=== PATIENT | male | born 1945 | race Caucasian/White ===

== ENCOUNTER 2019-10-26 23:49 | Inpatient (IN) ==
[2019-10-27] MEDS ORDERED: Aspirin 81 MG TAB.CHEW PO ONE (00:02)
[2019-10-27 00:31] LABS: Basophils # 0.1 K/mcL (0.0-0.2); Basophils % 0.7 %; Eosinophils # 0.3 K/mcL (0.0-0.6); Eosinophils % 2.8 %; Hematocrit 28.5 % (37.5-50.1); Hemoglobin 9.3 g/dL (12.9-16.9); Immature Granulocytes % 2.1 % (0-4); Lymphocytes # 2.5 K/mcL (0.6-4.6); Lymphocytes % 24.7 %; Mean Corpuscular HGB Conc 32.6 g/dL (31.6-35.5); Mean Corpuscular Hemoglobin 34.3 pg (28.0-33.3); Mean Corpuscular Volume 105.2 fL (83.0-100.0); Mean Platelet Volume 10.3 fL (9.4-12.4); Monocytes # 0.9 K/mcL (0.0-1.3); Neutrophils # 6.1 K/mcL (1.6-8.9); Platelet Count 205 K/mcL (140-400); Red Blood Count 2.71 M/mcL (4.19-5.50); Red Cell Distribution Width 13.5 % (11.5-14.5); Segmented Neutrophils % 60.7 %
[2019-10-27 00:50] LABS: BUN/Creatinine Ratio 27 (6-26); Blood Urea Nitrogen 32 mg/dL (8-23); Calcium 9.4 mg/dL (8.6-10.3); Carbon Dioxide 29 mEq/L (23-29); Chloride 103 mEq/L (98-107); Glucose 148 mg/dL (70-105); Osmolality,Calculated 298 (280-300); Potassium 4.3 mEq/L (3.5-5.1); Sodium 139 mEq/L (136-145); Troponin I < 0.03 ng/mL (< 0.04); eGFR For African Americans > 60 (> 60); eGFR For Non-African Americans > 60 (> 60)
[2019-10-27] MEDS ORDERED: Naloxone 0.4 MG/ML INJ IVP PRN (04:43)
[2019-10-27] MEDS ORDERED: Nitroglycerin 0.4 MG TAB.SUBL SL PRN (04:43)
[2019-10-27 05:37] LABS: Bilirubin,Urine Negative (Negative); Blood,Urine Negative (Negative); Clarity,Urine Clear (Clear); Color,Urine Yellow (Yellow); Glucose,Urine (UA) Normal (Normal); Ketones,Urine Negative (Negative); Leukocyte Esterase,Urine Negative (Negative); Nitrite,Urine Negative (Negative); PH,Urine 5.5 pH Units (5.0-8.0); Protein,Urine Trace mg/dL (Neg-Trace); Specific Gravity,Urine 1.019 (1.010-1.025); Urobilinogen,Urine Normal (Normal)
[2019-10-27 05:57] LABS: Amphetamine Screen,Urine Negative ng/mL (Cutoff=1000); Barbiturate Screen,Urine Negative ng/mL (Cutoff=200)
[2019-10-27 05:58] LABS: Benzodiazepines Screen,Urine Negative ng/mL (Cutoff=300); Cannabinoid Screen,Urine Negative ng/mL (Cutoff = 50); Cocaine Screen,Urine Negative ng/mL (Cutoff= 300); Opiate Screen,Urine Negative ng/mL (Cutoff=300); Phencyclidine Screen,Urine Negative ng/mL (Cutoff=25)
[2019-10-27] MEDS ORDERED: *HR* Heparin 5,000 UNIT/ML VIAL SQ SCH (06:00)
[2019-10-27] MEDS ORDERED: Regadenoson 0.4 MG/5 ML SYRINGE IVP ONE (06:14)
[2019-10-27 06:22] LABS: Basophils # 0.1 K/mcL (0.0-0.2); Basophils % 0.6 %; Eosinophils # 0.3 K/mcL (0.0-0.6); Eosinophils % 2.7 %; Hematocrit 27.6 % (37.5-50.1); Hemoglobin 9.1 g/dL (12.9-16.9); Immature Granulocytes % 1.5 % (0-4); Lymphocytes # 2.8 K/mcL (0.6-4.6); Mean Corpuscular Hemoglobin 34.6 pg (28.0-33.3); Mean Corpuscular Volume 104.9 fL (83.0-100.0); Mean Platelet Volume 10.2 fL (9.4-12.4); Monocytes # 0.9 K/mcL (0.0-1.3); Monocytes % 8.3 %; Neutrophils # 6.3 K/mcL (1.6-8.9); Nucleated Red Blood Cells 0.2 /100 WBC (0); Platelet Count 203 K/mcL (140-400); Red Blood Count 2.63 M/mcL (4.19-5.50); Red Cell Distribution Width 13.3 % (11.5-14.5); Segmented Neutrophils % 59.9 %; White Blood Count 10.5 K/mcL (4.3-11.1)
[2019-10-27 06:47] LABS: Alanine Aminotransferase 24 Units/L (7-52); Albumin 3.8 g/dL (3.5-5.7); Albumin/Globulin Ratio 1.5 (1.1-2.2); Alkaline Phosphatase 50 Units/L (34-104); Aspartate Amino Transferase 21 Units/L (13-39); BUN/Creatinine Ratio 28 (6-26); Bilirubin,Total 0.3 mg/dL (0.3-1.0); Blood Urea Nitrogen 29 mg/dL (8-23); Calcium 9.2 mg/dL (8.6-10.3); Carbon Dioxide 28 mEq/L (23-29); Chloride 103 mEq/L (98-107); Chol/HDL Ratio 4.1 (0-4.9); Cholesterol 119 mg/dL (< 200); Globulin 2.5 g/dL (2.4-3.5); Glucose 82 mg/dL (70-105); HDL Cholesterol 29 mg/dL (40-59); LDL Cholesterol,Calculated 32 mg/dL (0-99); Magnesium 1.8 mg/dL (1.6-2.6); Osmolality,Calculated 297 (280-300); Phosphorous 3.8 mg/dL (2.7-4.5); Potassium 4.1 mEq/L (3.5-5.1); Sodium 141 mEq/L (136-145); Total Protein 6.3 g/dL (6.4-8.9); Triglycerides 288 mg/dL (< 150); eGFR For African Americans > 60 (> 60); eGFR For Non-African Americans > 60 (> 60)
[2019-10-27 07:09] LABS: Folate 8.2 ng/mL (3.0-16.0)
[2019-10-27] MEDS ORDERED: *HR* Heparin 5,000 UNIT/ML VIAL IVP PRN ×2 (07:12)
[2019-10-27] MEDS ORDERED: Heparin 25,000 UNIT/250 ML D5W 25,000 UNIT/250 ML IV.SOLN IVC SCH (07:15)
[2019-10-27] MEDS: carvediloL 6.25 MG TABLET PO SCH ×2 (08:46→17:57)
[2019-10-27 08:51] LABS: Estimated Average Glucose 123 mg/dl
[2019-10-27] MEDS ORDERED: Cyanocobalamin (B-12) 1,000 MCG TABLET PO SCH (13:45)
[2019-10-27] MEDS ORDERED: *HR* Heparin 10,000 UNIT/10 ML VIAL ONE (14:01)
[2019-10-27] MEDS ORDERED: ISOVUE-370 200 ML INFUS..BTL ONE (14:01)
[2019-10-27] MEDS ORDERED: Heparin 1,000 UNITS/500 mL 500 ML ONE (14:01)
[2019-10-27] MEDS ORDERED: 0.9 % Sodium Chloride 1,000 ML ONE (14:01)
[2019-10-27] MEDS ORDERED: Nitroglycerin 1,000 MCG/10 ML VIAL IV ONE (14:01)
[2019-10-27] MEDS ORDERED: *HR* FentaNYL (PF) 100 MCG/2 ML VIAL ONE (14:09)
[2019-10-27] MEDS ORDERED: *HR* Midazolam HCl 2 MG/2 ML VIAL ONE (14:09)
[2019-10-27 14:18] LABS: % Iron Saturation 13 % (20-55); Iron 42 mcg/dL (65-175); Transferrin 223 mg/dL (203-362)
[2019-10-27] MEDS ORDERED: Perflutren Lipid Microsphere 1.3 ML in 0.9 % Sodium Chloride 8.7 ML IVP ONE (18:29)
[2019-10-27] MEDS: Cyanocobalamin (B-12) 1,000 MCG/ML VIAL SQ SCH (18:32)
[2019-10-27] MEDS: Heparin 25,000 UNIT/250 ML D5W 25,000 UNIT/250 ML IV.SOLN IVC SCH (18:43)
[2019-10-28 01:32] LABS: Basophils % 0.4 %; Eosinophils # 0.3 K/mcL (0.0-0.6); Eosinophils % 2.6 %; Hematocrit 27.4 % (37.5-50.1); Hemoglobin 9.1 g/dL (12.9-16.9); Immature Granulocytes % 2.1 % (0-4); Lymphocytes # 2.4 K/mcL (0.6-4.6); Lymphocytes % 22.3 %; Mean Corpuscular HGB Conc 33.2 g/dL (31.6-35.5); Mean Corpuscular Volume 102.2 fL (83.0-100.0); Mean Platelet Volume 10.5 fL (9.4-12.4); Neutrophils # 6.8 K/mcL (1.6-8.9); Platelet Count 235 K/mcL (140-400); Red Blood Count 2.68 M/mcL (4.19-5.50); Red Cell Distribution Width 13.6 % (11.5-14.5); Segmented Neutrophils % 63.6 %; White Blood Count 10.7 K/mcL (4.3-11.1)
[2019-10-28] MEDS ORDERED: *HR* Labetalol 20 MG/4 ML SYRINGE IVP ONE (01:39)
[2019-10-28 01:49] LABS: BUN/Creatinine Ratio 20 (6-26); Blood Urea Nitrogen 20 mg/dL (8-23); Calcium 9.1 mg/dL (8.6-10.3); Carbon Dioxide 27 mEq/L (23-29); Chloride 104 mEq/L (98-107); Glucose 91 mg/dL (70-105); Osmolality,Calculated 290 (280-300); Sodium 139 mEq/L (136-145); eGFR For African Americans > 60 (> 60); eGFR For Non-African Americans > 60 (> 60)
[2019-10-28] MEDS: carvediloL 6.25 MG TABLET PO SCH ×2 (07:39→17:18)
[2019-10-28] MEDS: Cyanocobalamin (B-12) 1,000 MCG/ML VIAL SQ SCH (07:40)
[2019-10-28] MEDS ORDERED: *HR* LORazepam 2 MG/ML VIAL IVP PRN (09:28)
[2019-10-28] MEDS ORDERED: Albuterol 2.5 MG/3 ML NEBULIZER IH PRN (09:41)
[2019-10-28 10:22] LABS: Hematocrit 30.3 % (37.5-50.1); Hemoglobin 10.1 g/dL (12.9-16.9)
[2019-10-28] MEDS: Ipratropium/Albuterol Neb 3 ML IH SCH ×4 (11:09→23:27)
[2019-10-28] MEDS: Lisinopril-HCTZ 20-12.5mg TABLET PO SCH (12:09)
[2019-10-28] MEDS ORDERED: Furosemide 20 MG TABLET PO PRN (13:52)
[2019-10-28] MEDS: Heparin 25,000 UNIT/250 ML D5W 25,000 UNIT/250 ML IV.SOLN IVC SCH (14:55)
[2019-10-28] MEDS: Thiamine (B-1) 100 MG, Folic Acid 1 MG, MVI, adult with vitamin K 10 ML in 0.9 % Sodi... IVPB SCH (17:26)
[2019-10-28 18:02] LABS: Hematocrit 28.7 % (37.5-50.1); Hemoglobin 9.5 g/dL (12.9-16.9)
[2019-10-28 18:17] LABS: % Iron Saturation 11 % (20-55); Iron 34 mcg/dL (65-175); Transferrin 228 mg/dL (203-362)
[2019-10-28 18:45] LABS: Folate 8.5 ng/mL (3.0-16.0)
[2019-10-28 18:48] LABS: Vitamin B12 > 1500 pg/mL (250-1100)
[2019-10-28] MEDS: Chlorhexidine Rinse 15 ML MOUTHWASH MM SCH (20:40)
[2019-10-29 00:37] LABS: Hematocrit 28.3 % (37.5-50.1); Hemoglobin 9.7 g/dL (12.9-16.9)
[2019-10-29] MEDS: Ipratropium/Albuterol Neb 3 ML IH SCH ×6 (03:42→23:47)
[2019-10-29] MEDS: carvediloL 6.25 MG TABLET PO SCH (05:45)
[2019-10-29] MEDS: Chlorhexidine Rinse 15 ML MOUTHWASH MM SCH ×2 (05:48→19:59)
[2019-10-29] MEDS ORDERED: CeFAZolin Syr 3,000MG/30 ML 3,000 MG/30 ML SYRINGE IVPB ONE (06:00)
[2019-10-29] MEDS ORDERED: Insulin Human Regular 100 UNIT in 0.9 % Sodium Chloride 100 ML IV PRN (06:00)
[2019-10-29] MEDS ORDERED: Heparin 15,000 UNIT in 0.9 % Sodium Chloride 500 ML IV ONE (06:00)
[2019-10-29] MEDS ORDERED: Norepinephrine 4 MG in 0.9 % Sodium Chloride 250 ML IVC PRN (06:00)
[2019-10-29] MEDS ORDERED: Dextrose 50 % in Water (Vial) 30 ML, Sodium Bicarbonate 20 MEQ, Lidocaine 1% 5 ML, Insu... TH ONE ×2 (06:00→08:00)
[2019-10-29] MEDS ORDERED: Dextrose 50 % in Water (Vial) 30 ML, Sodium Bicarbonate 20 MEQ, Potassium Chloride 15 M... TH ONE (06:00)
[2019-10-29] MEDS ORDERED: Aspirin 81 MG TAB.CHEW PO ONE (06:00)
[2019-10-29 06:38] LABS: Basophils % 0.3 %; Eosinophils # 0.2 K/mcL (0.0-0.6); Hemoglobin 8.8 g/dL (12.9-16.9); Immature Granulocytes % 1.9 % (0-4); Lymphocytes # 2.5 K/mcL (0.6-4.6); Lymphocytes % 21.3 %; Mean Corpuscular HGB Conc 32.6 g/dL (31.6-35.5); Mean Corpuscular Hemoglobin 34.1 pg (28.0-33.3); Mean Corpuscular Volume 104.7 fL (83.0-100.0); Mean Platelet Volume 9.8 fL (9.4-12.4); Monocytes # 1.4 K/mcL (0.0-1.3); Monocytes % 11.6 %; Neutrophils # 7.4 K/mcL (1.6-8.9); Nucleated Red Blood Cells 0.3 /100 WBC (0); Platelet Count 231 K/mcL (140-400); Red Blood Count 2.58 M/mcL (4.19-5.50); Red Cell Distribution Width 13.8 % (11.5-14.5); Segmented Neutrophils % 62.9 %; White Blood Count 11.8 K/mcL (4.3-11.1)
[2019-10-29] MEDS ORDERED: *HR* Midazolam HCl 5 MG/5 ML VIAL IVP ONE (06:53)
[2019-10-29] MEDS ORDERED: *HR* Propofol 200 MG/20 ML VIAL IVP ONE (06:54)
[2019-10-29] MEDS ORDERED: *HR* FentaNYL (PF) 1,000 MCG/20 ML VIAL ONE (06:54)
[2019-10-29 06:57] LABS: BUN/Creatinine Ratio 20 (6-26); Blood Urea Nitrogen 20 mg/dL (8-23); Calcium 9.2 mg/dL (8.6-10.3); Carbon Dioxide 32 mEq/L (23-29); Chloride 101 mEq/L (98-107); Glucose 115 mg/dL (70-105); Osmolality,Calculated 294 (280-300); Potassium 3.9 mEq/L (3.5-5.1); Sodium 140 mEq/L (136-145); eGFR For African Americans > 60 (> 60); eGFR For Non-African Americans > 60 (> 60)
[2019-10-29] MEDS ORDERED: Famotidine 20 MG/2 ML VIAL ONE (06:59)
[2019-10-29] MEDS ORDERED: *HR* Magnesium Sulfate 1 GM/2 ML VIAL ONE (06:59)
[2019-10-29] MEDS ORDERED: Dexamethasone 4 MG/ML VIAL ONE (06:59)
[2019-10-29] MEDS ORDERED: Tranexamic Acid 1,000 MG/10 ML VIAL ONE (07:01)
[2019-10-29] MEDS ORDERED: *HR* PHENYLEPHRINE 1,000 MCG/10 ML SYRINGE IVP ONE (07:03)
[2019-10-29] MEDS ORDERED: Lidocaine 2% Syringe 100 MG/5 ML ONE (07:06)
[2019-10-29] MEDS ORDERED: *HR* Rocuronium Bromide 50 MG/5 ML VIAL ONE ×3 (07:07→11:17)
[2019-10-29 08:14] LABS: ABG Base Excess 6 mEq/L (-2 to 3); ABG Chloride 100 mEq/L (98-107); ABG Glucose 105 mg/dL (60-95); ABG HCO3 33 mEq/L (21-27); ABG Ionized Calcium 1.23 mmol/L (1.15-1.35); ABG Oxygen Saturation 100 % (95-98); ABG PCO2 60 mmHg (35-45); ABG PH 7.35 pH Units (7.32-7.45); ABG PO2 320 mmHg (85-104); ABG TCO2 35 mEq/L (20-26)
[2019-10-29] MEDS ORDERED: Mannitol 25% vial 12.5 GM/50 ML VIAL IVP ONE (09:10)
[2019-10-29] MEDS ORDERED: Tranexamic Acid 1,000 MG/10 ML VIAL IVP ONE (09:10)
[2019-10-29] MEDS ORDERED: Heparin 1,000 UNITS/500 mL IV.SOLN IVC ONE (09:10)
[2019-10-29] MEDS ORDERED: Lidocaine 2% Syringe 100 MG/5 ML IV ONE (09:10)
[2019-10-29] MEDS ORDERED: D5% in Water 250 ML IV BAG IV ONE (09:10)
[2019-10-29] MEDS ORDERED: *HR* Heparin 10,000 UNIT/10 ML VIAL IV ONE (09:10)
[2019-10-29] MEDS ORDERED: *HR* Phenylephrine 10 MG/ML VIAL IVC ONE (09:10)
[2019-10-29] MEDS ORDERED: Albumin Human 25% 25 GM/100 ML IV.SOLN IV ONE (09:10)
[2019-10-29] MEDS ORDERED: *HR* Magnesium Sulfate 2 GM/50 ML PIGGYBACK IVPB ONE (09:10)
[2019-10-29] MEDS: Lisinopril-HCTZ 20-12.5mg TABLET PO SCH (09:11)
[2019-10-29] MEDS: Cyanocobalamin (B-12) 1,000 MCG/ML VIAL SQ SCH (09:11)
[2019-10-29] MEDS ORDERED: *HR* FentaNYL (PF) 250 MCG/5 ML VIAL ONE (09:18)
[2019-10-29 09:43] LABS: ABG Base Excess 1 mEq/L (-2 to 3); ABG Chloride 104 mEq/L (98-107); ABG Glucose 109 mg/dL (60-95); ABG HCO3 27 mEq/L (21-27); ABG Ionized Calcium 1.12 mmol/L (1.15-1.35); ABG Oxygen Saturation 100 % (95-98); ABG PCO2 52 mmHg (35-45); ABG PH 7.33 pH Units (7.32-7.45); ABG PO2 182 mmHg (85-104); ABG TCO2 29 mEq/L (20-26)
[2019-10-29] MEDS ORDERED: Protamine Sulfate 250 MG/25 ML VIAL IVP ONE (09:46)
[2019-10-29] MEDS ORDERED: Calcium Gluconate 1,000 MG/10 ML VIAL ONE (09:46)
[2019-10-29 10:03] LABS: ABG Base Excess 3 mEq/L (-2 to 3); ABG Chloride 97 mEq/L (98-107); ABG Glucose 163 mg/dL (60-95); ABG HCO3 28 mEq/L (21-27); ABG Ionized Calcium 1.12 mmol/L (1.15-1.35); ABG Oxygen Saturation 100 % (95-98); ABG PCO2 45 mmHg (35-45); ABG PO2 547 mmHg (85-104); ABG TCO2 30 mEq/L (20-26)
[2019-10-29 10:17] LABS: VBG Base Excess 3 mEq/L; VBG Chloride 97 mEq/L (98-107); VBG Glucose 157 mg/dl (65-95); VBG HCO3 29 mEq/L (21-27); VBG Ionized Calcium 1.13 mmol/L (1.15-1.35); VBG Oxygen Saturation 63 %; VBG PCO2 52 mmHg (41-51); VBG PH 7.36 pH Units (7.32-7.42); VBG PO2 35 mmHg (25-50); VBG Total CO2 31 mEq/L
[2019-10-29] MEDS ORDERED: Albumin Human 5% 25.0 GM/500 ML VIAL ONE (10:34)
[2019-10-29 10:36] LABS: ABG Base Excess 2 mEq/L (-2 to 3); ABG Chloride 99 mEq/L (98-107); ABG Glucose 170 mg/dL (60-95); ABG HCO3 27 mEq/L (21-27); ABG Ionized Calcium 1.08 mmol/L (1.15-1.35); ABG Oxygen Saturation 100 % (95-98); ABG PCO2 44 mmHg (35-45); ABG PO2 597 mmHg (85-104); ABG TCO2 28 mEq/L (20-26)
[2019-10-29 11:13] LABS: ABG Base Excess 4 mEq/L (-2 to 3); ABG Chloride 99 mEq/L (98-107); ABG Glucose 168 mg/dL (60-95); ABG HCO3 30 mEq/L (21-27); ABG Ionized Calcium 1.11 mmol/L (1.15-1.35); ABG Oxygen Saturation 100 % (95-98); ABG PCO2 51 mmHg (35-45); ABG PH 7.38 pH Units (7.32-7.45); ABG PO2 463 mmHg (85-104); ABG TCO2 32 mEq/L (20-26)
[2019-10-29 11:50] LABS: ABG Base Excess 2 mEq/L (-2 to 3); ABG Chloride 101 mEq/L (98-107); ABG Glucose 133 mg/dL (60-95); ABG HCO3 27 mEq/L (21-27); ABG Ionized Calcium 1.24 mmol/L (1.15-1.35); ABG Oxygen Saturation 100 % (95-98); ABG PCO2 48 mmHg (35-45); ABG PH 7.36 pH Units (7.32-7.45); ABG PO2 221 mmHg (85-104); ABG TCO2 29 mEq/L (20-26)
[2019-10-29] MEDS ORDERED: *HR* Dextrose 50 % in Water (Syg) 50 ML SYRINGE IVP PRN (12:12)
[2019-10-29] MEDS ORDERED: Insulin Regular, Human 100 UNIT/ML IV PRN (12:12)
[2019-10-29] MEDS ORDERED: Acetaminophen 650 MG RECTAL SUPP RC PRN (12:12)
[2019-10-29] MEDS ORDERED: Ondansetron 4 MG/2 ML VIAL IVP PRN (12:12)
[2019-10-29] MEDS ORDERED: Potassium Chloride 40 MEQ/200 ML BAG IVPB PRN (12:12)
[2019-10-29] MEDS ORDERED: Acetaminophen 325 MG TABLET PO PRN (12:12)
[2019-10-29] MEDS ORDERED: 0.9 % Sodium Chloride w KCl 20 MEQ/1,000 ML MLS IVC SCH (12:15)
[2019-10-29] MEDS ORDERED: Calcium Gluconate 1gm/50mL 1 GM/50 ML BAG IVPB PRN (12:18)
[2019-10-29] MEDS: Norepinephrine 4 MG in 0.9 % Sodium Chloride 250 ML IVC SCH (12:23)
[2019-10-29 12:51] LABS: ABG Base Excess 2 mEq/L (-2 to 3); ABG HCO3 28 mEq/L (21-27); ABG Oxygen Saturation 98 % (95-98); ABG PCO2 49 mmHg (35-45); ABG PH 7.37 pH Units (7.32-7.45); ABG PO2 115 mmHg (85-104); ABG TCO2 29 mEq/L (20-26); Blood Gas Modality ASSIST CONTROL; Blood Gas VT 600 cc
[2019-10-29 13:06] LABS: INR 1.3
[2019-10-29 13:07] LABS: BUN/Creatinine Ratio 17 (6-26); Blood Urea Nitrogen 20 mg/dL (8-23); Calcium 8.5 mg/dL (8.6-10.3); Carbon Dioxide 26 mEq/L (23-29); Chloride 104 mEq/L (98-107); Glucose 141 mg/dL (70-105); Magnesium 2.6 mg/dL (1.6-2.6); Osmolality,Calculated 291 (280-300); Potassium 4.2 mEq/L (3.5-5.1); Sodium 138 mEq/L (136-145); eGFR For African Americans > 60 (> 60); eGFR For Non-African Americans > 60 (> 60)
[2019-10-29 13:09] LABS: Activated Partial Thrombo Time 28.6 Seconds (26.0-36.0)
[2019-10-29 13:10] LABS: Prothrombin Time 14.2 Seconds (9.4-12.1)
[2019-10-29] MEDS: Insulin Human Regular 100 UNIT in 0.9 % Sodium Chloride 100 ML IVC SCH (13:10)
[2019-10-29] MEDS: *HR* FentaNYL (PF) 100 MCG/2 ML VIAL IVP PRN ×3 (13:15→16:30)
[2019-10-29] MEDS ORDERED: Dexmedetomidine HCl 400 MCG/100 ML MLS IVC ONE (13:17)
[2019-10-29] MEDS: Dexmedetomidine HCl 400 MCG/100 ML MLS IVC SCH ×3 (13:20→20:42)
[2019-10-29 13:22] LABS: Basophils # 0.1 K/mcL (0.0-0.2); Basophils % 0.5 %; Eosinophils # 0.2 K/mcL (0.0-0.6); Eosinophils % 0.8 %; Hematocrit 29.5 % (37.5-50.1); Hemoglobin 9.9 g/dL (12.9-16.9); Immature Granulocytes % 3.9 % (0-4); Lymphocytes % 12.9 %; Mean Corpuscular HGB Conc 33.6 g/dL (31.6-35.5); Mean Corpuscular Volume 98.3 fL (83.0-100.0); Mean Platelet Volume 10.1 fL (9.4-12.4); Monocytes # 2.1 K/mcL (0.0-1.3); Neutrophils # 16.8 K/mcL (1.6-8.9); Nucleated Red Blood Cells 0.1 /100 WBC (0); Platelet Count 212 K/mcL (140-400); Red Cell Distribution Width 15.9 % (11.5-14.5); Segmented Neutrophils % 72.9 %; White Blood Count 23.1 K/mcL (4.3-11.1)
[2019-10-29] MEDS: niCARdipine 20 MG in 0.9 % Sodium Chloride 192 ML IVC SCH (13:25)
[2019-10-29] MEDS: Pantoprazole 40 MG VIAL IVP SCH (13:33)
[2019-10-29] MEDS: *HR* OxyCODONE/APAP 5/325 TABLET PO PRN (14:31)
[2019-10-29] MEDS: Heparin 25,000 UNIT/250 ML D5W 25,000 UNIT/250 ML IV.SOLN IVC SCH (14:49)
[2019-10-29] MEDS: ceFAZolin 3,000 MG in 0.9 % Sodium Chloride 100 ML IVPB SCH ×2 (15:10→23:56)
[2019-10-29 15:51] LABS: ABG Base Excess 3 mEq/L (-2 to 3); ABG HCO3 28 mEq/L (21-27); ABG Oxygen Saturation 96 % (95-98); ABG PCO2 46 mmHg (35-45); ABG PO2 80 mmHg (85-104); ABG TCO2 30 mEq/L (20-26); Blood Gas Modality ASSIST CONTROL; Blood Gas VT 700 cc
[2019-10-29] MEDS: Metoclopramide 10 MG/2 ML VIAL IVP SCH ×2 (17:06→23:58)
[2019-10-29] MEDS: Thiamine (B-1) 100 MG, Folic Acid 1 MG, MVI, adult with vitamin K 10 ML in 0.9 % Sodi... IVPB SCH (17:30)
[2019-10-29 17:57] LABS: Hematocrit 26.7 % (37.5-50.1); Hemoglobin 9.2 g/dL (12.9-16.9)
[2019-10-29 21:28] LABS: ABG Base Excess 3 mEq/L (-2 to 3); ABG HCO3 29 mEq/L (21-27); ABG Oxygen Saturation 95 % (95-98); ABG PCO2 45 mmHg (35-45); ABG PH 7.41 pH Units (7.32-7.45); ABG PO2 74 mmHg (85-104); ABG TCO2 30 mEq/L (20-26); Blood Gas Modality AF; Blood Gas VT 700 cc
[2019-10-29 22:21] LABS: ABG Base Excess 3 mEq/L (-2 to 3); ABG HCO3 27 mEq/L (21-27); ABG Oxygen Saturation 94 % (95-98); ABG PCO2 43 mmHg (35-45); ABG PH 7.41 pH Units (7.32-7.45); ABG PO2 70 mmHg (85-104); ABG TCO2 29 mEq/L (20-26); Blood Gas Modality CPAP/PS; Blood Gas Pressure Support 5 cm H2O
[2019-10-29 23:58] LABS: ABG Base Excess 3 mEq/L (-2 to 3); ABG HCO3 28 mEq/L (21-27); ABG Oxygen Saturation 88 % (95-98); ABG PCO2 44 mmHg (35-45); ABG PH 7.41 pH Units (7.32-7.45); ABG PO2 56 mmHg (85-104); ABG TCO2 29 mEq/L (20-26)
[2019-10-30] MEDS: Dexmedetomidine HCl 400 MCG/100 ML MLS IVC SCH ×2 (00:50→04:55)
[2019-10-30 02:02] LABS: Hematocrit 26.2 % (37.5-50.1); Hemoglobin 8.7 g/dL (12.9-16.9)
[2019-10-30] MEDS: *HR* OxyCODONE/APAP 5/325 TABLET PO PRN ×4 (04:02→21:09)
[2019-10-30 04:07] LABS: Basophils % 0.2 %; Hematocrit 26.3 % (37.5-50.1); Hemoglobin 8.6 g/dL (12.9-16.9); Immature Granulocytes % 1.4 % (0-4); Lymphocytes # 1.6 K/mcL (0.6-4.6); Lymphocytes % 9.3 %; Mean Corpuscular HGB Conc 32.7 g/dL (31.6-35.5); Mean Corpuscular Hemoglobin 32.7 pg (28.0-33.3); Mean Platelet Volume 10.2 fL (9.4-12.4); Monocytes % 11.9 %; Neutrophils # 12.8 K/mcL (1.6-8.9); Nucleated Red Blood Cells 0.2 /100 WBC (0); Platelet Count 179 K/mcL (140-400); Red Blood Count 2.63 M/mcL (4.19-5.50); Red Cell Distribution Width 16.3 % (11.5-14.5); Segmented Neutrophils % 77.2 %; White Blood Count 16.6 K/mcL (4.3-11.1)
[2019-10-30] MEDS: Ipratropium/Albuterol Neb 3 ML IH SCH ×3 (04:11→10:50)
[2019-10-30 04:18] LABS: INR 1.1; Prothrombin Time 12.4 Seconds (9.4-12.1)
[2019-10-30 04:21] LABS: Activated Partial Thrombo Time 27.3 Seconds (26.0-36.0)
[2019-10-30 04:29] LABS: BUN/Creatinine Ratio 19 (6-26); Blood Urea Nitrogen 20 mg/dL (8-23); Calcium 8.6 mg/dL (8.6-10.3); Carbon Dioxide 26 mEq/L (23-29); Chloride 105 mEq/L (98-107); Glucose 130 mg/dL (70-105); Magnesium 2.3 mg/dL (1.6-2.6); Osmolality,Calculated 292 (280-300); Potassium 4.4 mEq/L (3.5-5.1); Sodium 139 mEq/L (136-145); eGFR For African Americans > 60 (> 60); eGFR For Non-African Americans > 60 (> 60)
[2019-10-30] MEDS: Metoclopramide 10 MG/2 ML VIAL IVP SCH ×3 (05:26→17:13)
[2019-10-30] MEDS ORDERED: *HR* Dextrose 50 % in Water (Syg) 50 ML SYRINGE IVP PRN (06:19)
[2019-10-30] MEDS ORDERED: D5% in Water 1,000 ML IVC PRN (06:19)
[2019-10-30] MEDS ORDERED: Dextrose Gel 15 GM/37.5 ML TUBE PO PRN ×2 (06:19)
[2019-10-30] MEDS: Insulin LISPRO 300 UNITS/3 ML VIAL SQ SCH ×3 (07:22→16:25)
[2019-10-30] MEDS: Aspirin Enteric Coated 81 MG Tablet PO SCH (07:37)
[2019-10-30] MEDS: Furosemide 20 MG/2 ML VIAL IVP SCH ×2 (07:37→20:00)
[2019-10-30] MEDS: Cyanocobalamin (B-12) 1,000 MCG/ML VIAL SQ SCH (07:37)
[2019-10-30] MEDS: Chlorhexidine Rinse 15 ML MOUTHWASH MM SCH ×2 (07:37→20:00)
[2019-10-30] MEDS: Pantoprazole 40 MG VIAL IVP SCH (07:37)
[2019-10-30] MEDS ORDERED: carvediloL 6.25 MG TABLET PO SCH (08:00)
[2019-10-30 09:25] LABS: Hematocrit 26.2 % (37.5-50.1); Hemoglobin 8.8 g/dL (12.9-16.9)
[2019-10-30] MEDS: niCARdipine 20 MG in 0.9 % Sodium Chloride 192 ML IVC SCH (11:24)
[2019-10-30] MEDS: Norepinephrine 4 MG in 0.9 % Sodium Chloride 250 ML IVC SCH (11:24)
[2019-10-30] MEDS ORDERED: Budesonide/Formoterol 160/4.5 1 PUFF INH IH ONE (11:35)
[2019-10-30] MEDS: Budesonide/Formoterol 160/4.5 1 PUFF INH IH SCH ×2 (11:42→20:37)
[2019-10-30] MEDS: Ipratropium 1 PUFF INHALER IH SCH ×3 (11:42→20:38)
[2019-10-30] MEDS ORDERED: *HR* FentaNYL (PF) 100 MCG/2 ML VIAL IVP PRN (12:12)
[2019-10-30] MEDS: Insulin Human Regular 100 UNIT in 0.9 % Sodium Chloride 100 ML IVC SCH (14:24)
[2019-10-30] MEDS: Multivit/Ca/Min/Fe/FA 1 TAB TABLET PO SCH (14:30)
[2019-10-30] MEDS: Folic Acid 1 MG TABLET PO SCH (14:30)
[2019-10-30] MEDS: Thiamine (B-1) 100 MG TABLET PO SCH ×2 (14:30→20:00)
[2019-10-30] MEDS ORDERED: Insulin LISPRO 300 UNITS/3 ML VIAL SQ SCH (21:00)
[2019-10-31] MEDS: Ipratropium 1 PUFF INHALER IH SCH ×7 (00:21→23:38)
[2019-10-31] MEDS: *HR* OxyCODONE/APAP 5/325 TABLET PO PRN ×3 (00:23→21:11)
[2019-10-31 04:31] LABS: Basophils # 0.1 K/mcL (0.0-0.2); Basophils % 0.3 %; Eosinophils % 0.2 %; Hematocrit 25.6 % (37.5-50.1); Hemoglobin 8.5 g/dL (12.9-16.9); Immature Granulocytes % 2.2 % (0-4); Lymphocytes # 2.7 K/mcL (0.6-4.6); Lymphocytes % 14.7 %; Mean Corpuscular HGB Conc 33.2 g/dL (31.6-35.5); Mean Corpuscular Hemoglobin 33.1 pg (28.0-33.3); Mean Corpuscular Volume 99.6 fL (83.0-100.0); Mean Platelet Volume 10.5 fL (9.4-12.4); Monocytes # 2.8 K/mcL (0.0-1.3); Neutrophils # 12.5 K/mcL (1.6-8.9); Nucleated Red Blood Cells 0.2 /100 WBC (0); Platelet Count 219 K/mcL (140-400); Red Blood Count 2.57 M/mcL (4.19-5.50); Red Cell Distribution Width 16.3 % (11.5-14.5); Segmented Neutrophils % 67.6 %; White Blood Count 18.5 K/mcL (4.3-11.1)
[2019-10-31 04:44] LABS: BUN/Creatinine Ratio 22 (6-26); Blood Urea Nitrogen 25 mg/dL (8-23); Calcium 8.1 mg/dL (8.6-10.3); Carbon Dioxide 27 mEq/L (23-29); Chloride 99 mEq/L (98-107); Glucose 132 mg/dL (70-105); Osmolality,Calculated 284 (280-300); Potassium 3.9 mEq/L (3.5-5.1); Sodium 134 mEq/L (136-145); eGFR For African Americans > 60 (> 60); eGFR For Non-African Americans > 60 (> 60)
[2019-10-31] MEDS: Budesonide/Formoterol 160/4.5 1 PUFF INH IH SCH ×2 (08:36→20:24)
[2019-10-31] MEDS: Furosemide 20 MG/2 ML VIAL IVP SCH (08:49)
[2019-10-31] MEDS: Cyanocobalamin (B-12) 1,000 MCG/ML VIAL SQ SCH (08:49)
[2019-10-31] MEDS: Chlorhexidine Rinse 15 ML MOUTHWASH MM SCH ×2 (08:49→21:13)
[2019-10-31] MEDS: Thiamine (B-1) 100 MG TABLET PO SCH ×3 (08:50→21:12)
[2019-10-31] MEDS: Folic Acid 1 MG TABLET PO SCH (08:50)
[2019-10-31] MEDS: Multivit/Ca/Min/Fe/FA 1 TAB TABLET PO SCH (08:50)
[2019-10-31] MEDS: Aspirin Enteric Coated 81 MG Tablet PO SCH (08:50)
[2019-10-31] MEDS ORDERED: Lisinopril-HCTZ 20-12.5mg TABLET PO SCH (09:00)
[2019-10-31] MEDS ORDERED: amLODIPine 5 MG TABLET PO SCH (09:00)
[2019-10-31] MEDS: Insulin LISPRO 300 UNITS/3 ML VIAL SQ SCH ×3 (09:07→16:46)
[2019-10-31] MEDS ORDERED: Norepinephrine 4 MG in 0.9 % Sodium Chloride 250 ML IVC SCH (15:05)
[2019-10-31] MEDS ORDERED: D5% in Water 1,000 ML IVC PRN (15:05)
[2019-10-31] MEDS ORDERED: Nitroglycerin 0.4 MG TAB.SUBL SL PRN (15:05)
[2019-10-31] MEDS ORDERED: Acetaminophen 325 MG TABLET PO PRN (15:05)
[2019-10-31] MEDS ORDERED: *HR* Dextrose 50 % in Water (Syg) 50 ML SYRINGE IVP PRN (15:05)
[2019-10-31] MEDS ORDERED: Furosemide 20 MG TABLET PO PRN (15:05)
[2019-10-31] MEDS ORDERED: Insulin Regular, Human 100 UNIT/ML IV PRN (15:05)
[2019-10-31] MEDS ORDERED: Naloxone 0.4 MG/ML INJ IVP PRN (15:05)
[2019-10-31] MEDS ORDERED: *HR* LORazepam 2 MG/ML VIAL IVP PRN (15:05)
[2019-10-31] MEDS ORDERED: Dextrose Gel 15 GM/37.5 ML TUBE PO PRN ×2 (15:05)
[2019-10-31] MEDS ORDERED: Ondansetron 4 MG/2 ML VIAL IVP PRN (15:05)
[2019-10-31] MEDS: *HR* Heparin 5,000 UNIT/ML VIAL SQ SCH (17:14)
[2019-10-31] MEDS ORDERED: Insulin LISPRO 300 UNITS/3 ML VIAL SQ SCH (21:00)
[2019-11-01] MEDS: Ipratropium 1 PUFF INHALER IH SCH ×6 (04:01→23:29)
[2019-11-01] MEDS: *HR* Heparin 5,000 UNIT/ML VIAL SQ SCH ×2 (06:26→16:29)
[2019-11-01] MEDS: Insulin LISPRO 300 UNITS/3 ML VIAL SQ SCH ×3 (07:44→16:24)
[2019-11-01] MEDS: Chlorhexidine Rinse 15 ML MOUTHWASH MM SCH ×2 (07:49→22:22)
[2019-11-01] MEDS: Folic Acid 1 MG TABLET PO SCH (07:50)
[2019-11-01] MEDS: Lisinopril-HCTZ 20-12.5mg TABLET PO SCH (07:50)
[2019-11-01] MEDS: Aspirin Enteric Coated 81 MG Tablet PO SCH (07:50)
[2019-11-01] MEDS: Multivit/Ca/Min/Fe/FA 1 TAB TABLET PO SCH (07:50)
[2019-11-01] MEDS: Thiamine (B-1) 100 MG TABLET PO SCH ×3 (07:50→22:22)
[2019-11-01] MEDS: Budesonide/Formoterol 160/4.5 1 PUFF INH IH SCH ×2 (08:03→21:04)
[2019-11-01] MEDS ORDERED: Cyanocobalamin (B-12) 1,000 MCG/ML VIAL SQ SCH (09:00)
[2019-11-01] MEDS ORDERED: MOM Conc 10 ML UD.LIQ PO PRN (09:02)
[2019-11-01] MEDS: *HR* OxyCODONE/APAP 5/325 TABLET PO PRN ×2 (09:15→22:22)
[2019-11-01] MEDS ORDERED: Ipratropium/Albuterol Neb 3 ML IH PRN (13:10)
[2019-11-01] MEDS ORDERED: Furosemide 40 MG/4 ML VIAL IVP ONE (13:11)
[2019-11-02] MEDS: Ipratropium 1 PUFF INHALER IH SCH ×6 (04:07→23:53)
[2019-11-02 05:10] LABS: Basophils # 0.1 K/mcL (0.0-0.2); Basophils % 0.4 %; Eosinophils # 0.2 K/mcL (0.0-0.6); Eosinophils % 1.3 %; Hematocrit 25.9 % (37.5-50.1); Hemoglobin 8.3 g/dL (12.9-16.9); Immature Granulocytes % 3.7 % (0-4); Lymphocytes # 2.3 K/mcL (0.6-4.6); Lymphocytes % 16.6 %; Mean Corpuscular Hemoglobin 32.5 pg (28.0-33.3); Mean Corpuscular Volume 101.6 fL (83.0-100.0); Mean Platelet Volume 10.1 fL (9.4-12.4); Monocytes # 1.8 K/mcL (0.0-1.3); Monocytes % 12.7 %; Platelet Count 244 K/mcL (140-400); Red Blood Count 2.55 M/mcL (4.19-5.50); Red Cell Distribution Width 15.8 % (11.5-14.5); Segmented Neutrophils % 65.3 %; White Blood Count 13.8 K/mcL (4.3-11.1)
[2019-11-02 05:32] LABS: BUN/Creatinine Ratio 35 (6-26); Blood Urea Nitrogen 43 mg/dL (8-23); Calcium 8.5 mg/dL (8.6-10.3); Carbon Dioxide 29 mEq/L (23-29); Chloride 101 mEq/L (98-107); Glucose 87 mg/dL (70-105); Osmolality,Calculated 292 (280-300); Potassium 3.8 mEq/L (3.5-5.1); Sodium 136 mEq/L (136-145); eGFR For African Americans > 60 (> 60); eGFR For Non-African Americans 57 (> 60)
[2019-11-02] MEDS: *HR* Heparin 5,000 UNIT/ML VIAL SQ SCH ×2 (05:40→16:42)
[2019-11-02] MEDS: Folic Acid 1 MG TABLET PO SCH (07:20)
[2019-11-02] MEDS: Chlorhexidine Rinse 15 ML MOUTHWASH MM SCH ×2 (07:20→20:37)
[2019-11-02] MEDS: Metoprolol XL (24 HR) Succ 25 MG TAB.ER.24H PO SCH (07:20)
[2019-11-02] MEDS: Aspirin Enteric Coated 81 MG Tablet PO SCH (07:20)
[2019-11-02] MEDS: Lisinopril-HCTZ 20-12.5mg TABLET PO SCH (07:21)
[2019-11-02] MEDS: Cyanocobalamin (B-12) 1,000 MCG TABLET PO SCH (07:21)
[2019-11-02] MEDS: Thiamine (B-1) 100 MG TABLET PO SCH ×3 (07:21→20:37)
[2019-11-02] MEDS: Multivit/Ca/Min/Fe/FA 1 TAB TABLET PO SCH (07:21)
[2019-11-02] MEDS: Budesonide/Formoterol 160/4.5 1 PUFF INH IH SCH ×2 (07:35→20:18)
[2019-11-02] MEDS: Sennosides/Docusate Sodium TABLET PO SCH ×2 (11:11→20:37)
[2019-11-02] MEDS ORDERED: Furosemide 40 MG/4 ML VIAL IVP ONE (11:41)
[2019-11-02] MEDS: *HR* OxyCODONE/APAP 5/325 TABLET PO PRN (20:37)
[2019-11-03] MEDS: *HR* OxyCODONE/APAP 5/325 TABLET PO PRN ×4 (01:59→23:53)
[2019-11-03] MEDS: Ipratropium 1 PUFF INHALER IH SCH ×6 (04:44→23:45)
[2019-11-03 04:49] LABS: Basophils # 0.1 K/mcL (0.0-0.2); Basophils % 0.8 %; Eosinophils # 0.2 K/mcL (0.0-0.6); Eosinophils % 1.6 %; Hematocrit 26.7 % (37.5-50.1); Hemoglobin 8.4 g/dL (12.9-16.9); Immature Granulocytes % 3.9 % (0-4); Lymphocytes # 2.5 K/mcL (0.6-4.6); Lymphocytes % 17.9 %; Mean Corpuscular HGB Conc 31.5 g/dL (31.6-35.5); Mean Corpuscular Hemoglobin 32.7 pg (28.0-33.3); Mean Corpuscular Volume 103.9 fL (83.0-100.0); Mean Platelet Volume 10.1 fL (9.4-12.4); Monocytes # 1.6 K/mcL (0.0-1.3); Monocytes % 11.6 %; Neutrophils # 9.1 K/mcL (1.6-8.9); Nucleated Red Blood Cells 0.1 /100 WBC (0); Platelet Count 295 K/mcL (140-400); Red Blood Count 2.57 M/mcL (4.19-5.50); Red Cell Distribution Width 15.6 % (11.5-14.5); Segmented Neutrophils % 64.2 %; White Blood Count 14.2 K/mcL (4.3-11.1)
[2019-11-03 04:59] LABS: BUN/Creatinine Ratio 33 (6-26); Blood Urea Nitrogen 41 mg/dL (8-23); Calcium 8.8 mg/dL (8.6-10.3); Carbon Dioxide 28 mEq/L (23-29); Chloride 100 mEq/L (98-107); Glucose 88 mg/dL (70-105); Osmolality,Calculated 294 (280-300); Potassium 3.8 mEq/L (3.5-5.1); Sodium 137 mEq/L (136-145); eGFR For African Americans > 60 (> 60); eGFR For Non-African Americans 58 (> 60)
[2019-11-03] MEDS ORDERED: Amiodarone Premix 150 MG/100 ML BAG IVPB ONE (05:20)
[2019-11-03] MEDS ORDERED: Amiodarone Premix 360 MG/200 ML BAG IVC ONE (05:20)
[2019-11-03] MEDS: *HR* Heparin 5,000 UNIT/ML VIAL SQ SCH ×2 (05:56→16:20)
[2019-11-03] MEDS: Sennosides/Docusate Sodium TABLET PO SCH ×2 (07:08→19:45)
[2019-11-03] MEDS: Chlorhexidine Rinse 15 ML MOUTHWASH MM SCH ×2 (07:08→19:45)
[2019-11-03] MEDS: Multivit/Ca/Min/Fe/FA 1 TAB TABLET PO SCH (07:09)
[2019-11-03] MEDS: Folic Acid 1 MG TABLET PO SCH (07:09)
[2019-11-03] MEDS: Aspirin Enteric Coated 81 MG Tablet PO SCH (07:09)
[2019-11-03] MEDS: Metoprolol XL (24 HR) Succ 25 MG TAB.ER.24H PO SCH (07:09)
[2019-11-03] MEDS: Thiamine (B-1) 100 MG TABLET PO SCH ×3 (07:09→19:45)
[2019-11-03] MEDS: Lisinopril-HCTZ 20-12.5mg TABLET PO SCH (07:09)
[2019-11-03] MEDS: Cyanocobalamin (B-12) 1,000 MCG TABLET PO SCH (07:09)
[2019-11-03] MEDS: Amiodarone Premix 360 MG/200 ML BAG IVC SCH ×3 (07:10→23:53)
[2019-11-03] MEDS: Budesonide/Formoterol 160/4.5 1 PUFF INH IH SCH ×2 (07:32→19:56)
[2019-11-04 02:03] LABS: Basophils # 0.1 K/mcL (0.0-0.2); Basophils % 0.6 %; Eosinophils # 0.3 K/mcL (0.0-0.6); Eosinophils % 1.9 %; Hematocrit 26.4 % (37.5-50.1); Hemoglobin 8.4 g/dL (12.9-16.9); Immature Granulocytes % 4.4 % (0-4); Lymphocytes # 2.6 K/mcL (0.6-4.6); Lymphocytes % 17.4 %; Mean Corpuscular HGB Conc 31.8 g/dL (31.6-35.5); Mean Corpuscular Hemoglobin 32.2 pg (28.0-33.3); Mean Corpuscular Volume 101.1 fL (83.0-100.0); Mean Platelet Volume 10.1 fL (9.4-12.4); Monocytes # 1.7 K/mcL (0.0-1.3); Neutrophils # 9.7 K/mcL (1.6-8.9); Platelet Count 345 K/mcL (140-400); Red Blood Count 2.61 M/mcL (4.19-5.50); Red Cell Distribution Width 15.7 % (11.5-14.5); Segmented Neutrophils % 64.7 %; White Blood Count 14.9 K/mcL (4.3-11.1)
[2019-11-04 02:15] LABS: BUN/Creatinine Ratio 37 (6-26); Blood Urea Nitrogen 47 mg/dL (8-23); Calcium 8.9 mg/dL (8.6-10.3); Carbon Dioxide 29 mEq/L (23-29); Chloride 99 mEq/L (98-107); Glucose 91 mg/dL (70-105); Magnesium 2.5 mg/dL (1.6-2.6); Osmolality,Calculated 292 (280-300); Potassium 3.9 mEq/L (3.5-5.1); Sodium 135 mEq/L (136-145); eGFR For African Americans > 60 (> 60); eGFR For Non-African Americans 56 (> 60)
[2019-11-04] MEDS: Ipratropium 1 PUFF INHALER IH SCH ×5 (03:48→20:12)
[2019-11-04] MEDS: *HR* Heparin 5,000 UNIT/ML VIAL SQ SCH ×2 (05:46→16:06)
[2019-11-04] MEDS: Budesonide/Formoterol 160/4.5 1 PUFF INH IH SCH ×2 (07:33→20:12)
[2019-11-04] MEDS: Cyanocobalamin (B-12) 1,000 MCG TABLET PO SCH (08:14)
[2019-11-04] MEDS: Aspirin Enteric Coated 81 MG Tablet PO SCH (08:14)
[2019-11-04] MEDS: Multivit/Ca/Min/Fe/FA 1 TAB TABLET PO SCH (08:14)
[2019-11-04] MEDS: Chlorhexidine Rinse 15 ML MOUTHWASH MM SCH ×2 (08:14→21:00)
[2019-11-04] MEDS: Sennosides/Docusate Sodium TABLET PO SCH ×2 (08:14→21:00)
[2019-11-04] MEDS: Thiamine (B-1) 100 MG TABLET PO SCH ×3 (08:14→21:00)
[2019-11-04] MEDS: Folic Acid 1 MG TABLET PO SCH (08:14)
[2019-11-04] MEDS: Lisinopril-HCTZ 20-12.5mg TABLET PO SCH (08:14)
[2019-11-04] MEDS: Metoprolol XL (24 HR) Succ 50 MG TAB.ER.24H PO SCH (08:15)
[2019-11-04] MEDS: *HR* OxyCODONE/APAP 5/325 TABLET PO PRN ×2 (08:15→21:00)
[2019-11-04] MEDS: *HR* Amiodarone 200 MG TABLET PO SCH (10:01)
[2019-11-05] MEDS: Ipratropium 1 PUFF INHALER IH SCH ×6 (00:21→20:17)
[2019-11-05] MEDS: *HR* OxyCODONE/APAP 5/325 TABLET PO PRN ×4 (02:03→20:03)
[2019-11-05 05:33] LABS: Basophils # 0.1 K/mcL (0.0-0.2); Basophils % 0.4 %; Eosinophils # 0.3 K/mcL (0.0-0.6); Eosinophils % 1.7 %; Hematocrit 24.5 % (37.5-50.1); Hemoglobin 7.8 g/dL (12.9-16.9); Immature Granulocytes % 4.3 % (0-4); Lymphocytes # 2.9 K/mcL (0.6-4.6); Lymphocytes % 18.4 %; Mean Corpuscular HGB Conc 31.8 g/dL (31.6-35.5); Mean Corpuscular Hemoglobin 32.6 pg (28.0-33.3); Mean Corpuscular Volume 102.5 fL (83.0-100.0); Mean Platelet Volume 9.7 fL (9.4-12.4); Monocytes # 1.6 K/mcL (0.0-1.3); Monocytes % 9.8 %; Neutrophils # 10.4 K/mcL (1.6-8.9); Platelet Count 351 K/mcL (140-400); Red Blood Count 2.39 M/mcL (4.19-5.50); Red Cell Distribution Width 15.5 % (11.5-14.5); Segmented Neutrophils % 65.4 %; White Blood Count 15.9 K/mcL (4.3-11.1)
[2019-11-05 05:52] LABS: BUN/Creatinine Ratio 39 (6-26); Blood Urea Nitrogen 46 mg/dL (8-23); Calcium 8.9 mg/dL (8.6-10.3); Carbon Dioxide 29 mEq/L (23-29); Chloride 100 mEq/L (98-107); Glucose 98 mg/dL (70-105); Magnesium 2.4 mg/dL (1.6-2.6); Osmolality,Calculated 298 (280-300); Potassium 4.3 mEq/L (3.5-5.1); Sodium 138 mEq/L (136-145); eGFR For African Americans > 60 (> 60); eGFR For Non-African Americans > 60 (> 60)
[2019-11-05] MEDS: *HR* Heparin 5,000 UNIT/ML VIAL SQ SCH ×2 (05:52→16:26)
[2019-11-05] MEDS: Budesonide/Formoterol 160/4.5 1 PUFF INH IH SCH ×2 (07:50→20:17)
[2019-11-05 08:22] LABS: Hematocrit 24.7 % (37.5-50.1)
[2019-11-05] MEDS: Chlorhexidine Rinse 15 ML MOUTHWASH MM SCH ×2 (08:24→20:03)
[2019-11-05] MEDS: Folic Acid 1 MG TABLET PO SCH (08:24)
[2019-11-05] MEDS: Aspirin Enteric Coated 81 MG Tablet PO SCH (08:25)
[2019-11-05] MEDS: Multivit/Ca/Min/Fe/FA 1 TAB TABLET PO SCH (08:25)
[2019-11-05] MEDS: Metoprolol XL (24 HR) Succ 50 MG TAB.ER.24H PO SCH (08:25)
[2019-11-05] MEDS: Sennosides/Docusate Sodium TABLET PO SCH ×2 (08:25→20:03)
[2019-11-05] MEDS: *HR* Amiodarone 200 MG TABLET PO SCH (08:25)
[2019-11-05] MEDS: Thiamine (B-1) 100 MG TABLET PO SCH ×3 (08:25→20:03)
[2019-11-05] MEDS: Cyanocobalamin (B-12) 1,000 MCG TABLET PO SCH (08:26)
[2019-11-05] MEDS: Lisinopril-HCTZ 20-12.5mg TABLET PO SCH (08:26)
[2019-11-06] MEDS: *HR* OxyCODONE/APAP 5/325 TABLET PO PRN ×3 (00:11→20:30)
[2019-11-06] MEDS: Ipratropium 1 PUFF INHALER IH SCH ×7 (00:22→23:42)
[2019-11-06 01:23] LABS: Eosinophils % 1.8 %; Hematocrit 23.2 % (37.5-50.1); Hemoglobin 7.5 g/dL (12.9-16.9); Immature Granulocytes % 4.7 % (0-4); Lymphocytes % 17.7 %; Mean Corpuscular HGB Conc 32.3 g/dL (31.6-35.5); Mean Corpuscular Hemoglobin 32.5 pg (28.0-33.3); Mean Corpuscular Volume 100.4 fL (83.0-100.0); Mean Platelet Volume 9.8 fL (9.4-12.4); Monocytes % 10.2 %; Platelet Count 390 K/mcL (140-400); Red Blood Count 2.31 M/mcL (4.19-5.50); Red Cell Distribution Width 15.9 % (11.5-14.5); Segmented Neutrophils % 65.2 %; White Blood Count 14.8 K/mcL (4.3-11.1)
[2019-11-06 01:24] LABS: Basophils # 0.1 K/mcL (0.0-0.2); Basophils % 0.4 %; Eosinophils # 0.3 K/mcL (0.0-0.6); Lymphocytes # 2.6 K/mcL (0.6-4.6); Monocytes # 1.5 K/mcL (0.0-1.3); Neutrophils # 9.6 K/mcL (1.6-8.9); Nucleated Red Blood Cells 0.1 /100 WBC (0)
[2019-11-06] MEDS: *HR* Heparin 5,000 UNIT/ML VIAL SQ SCH (05:53)
[2019-11-06] MEDS ORDERED: 0.9 % Sodium Chloride 250 ML IVC SCH (07:45)
[2019-11-06] MEDS: Budesonide/Formoterol 160/4.5 1 PUFF INH IH SCH ×2 (07:48→20:46)
[2019-11-06] MEDS: Sennosides/Docusate Sodium TABLET PO SCH ×2 (08:27→20:31)
[2019-11-06] MEDS: Folic Acid 1 MG TABLET PO SCH (08:27)
[2019-11-06] MEDS: Multivit/Ca/Min/Fe/FA 1 TAB TABLET PO SCH (08:27)
[2019-11-06] MEDS: Metoprolol XL (24 HR) Succ 50 MG TAB.ER.24H PO SCH (08:27)
[2019-11-06] MEDS: *HR* Amiodarone 200 MG TABLET PO SCH (08:27)
[2019-11-06] MEDS: Aspirin Enteric Coated 81 MG Tablet PO SCH (08:27)
[2019-11-06] MEDS: Thiamine (B-1) 100 MG TABLET PO SCH ×3 (08:27→20:30)
[2019-11-06] MEDS: Lisinopril-HCTZ 20-12.5mg TABLET PO SCH (08:28)
[2019-11-06] MEDS: Chlorhexidine Rinse 15 ML MOUTHWASH MM SCH ×2 (08:28→20:31)
[2019-11-06] MEDS ORDERED: SODIUM CHLORIDE/NAHCO3/KCL/PEG 4,000 ML SOLN.RECON PO ONE (17:00)
[2019-11-06 17:10] LABS: Hematocrit 28.2 % (37.5-50.1)
[2019-11-06 17:11] LABS: Hemoglobin 9.2 g/dL (12.9-16.9)
[2019-11-07] MEDS: *HR* OxyCODONE/APAP 5/325 TABLET PO PRN ×3 (01:02→23:50)
[2019-11-07] MEDS: Ipratropium 1 PUFF INHALER IH SCH ×5 (04:28→20:45)
[2019-11-07 05:22] LABS: Hematocrit 23.6 % (37.5-50.1)
[2019-11-07 05:23] LABS: Hemoglobin 7.4 g/dL (12.9-16.9)
[2019-11-07] MEDS: Multivit/Ca/Min/Fe/FA 1 TAB TABLET PO SCH (07:48)
[2019-11-07] MEDS: Metoprolol XL (24 HR) Succ 50 MG TAB.ER.24H PO SCH (07:48)
[2019-11-07] MEDS: Thiamine (B-1) 100 MG TABLET PO SCH ×3 (07:48→19:49)
[2019-11-07] MEDS: Aspirin Enteric Coated 81 MG Tablet PO SCH (07:48)
[2019-11-07] MEDS: Lisinopril-HCTZ 20-12.5mg TABLET PO SCH (07:48)
[2019-11-07] MEDS: *HR* Amiodarone 200 MG TABLET PO SCH (07:48)
[2019-11-07] MEDS: Chlorhexidine Rinse 15 ML MOUTHWASH MM SCH ×2 (07:49→19:50)
[2019-11-07] MEDS: Sennosides/Docusate Sodium TABLET PO SCH ×2 (07:50→19:50)
[2019-11-07] MEDS: Folic Acid 1 MG TABLET PO SCH (07:50)
[2019-11-07] MEDS: Budesonide/Formoterol 160/4.5 1 PUFF INH IH SCH ×2 (07:59→20:45)
[2019-11-07] MEDS ORDERED: 0.9 % Sodium Chloride 250 ML IVC SCH (08:45)
[2019-11-07] MEDS ORDERED: Propofol 500 MG/50 ML INFUS..BTL ONE (09:17)
[2019-11-07] MEDS: Furosemide 20 MG/2 ML VIAL IVP SCH ×2 (14:02→17:31)
[2019-11-07 19:32] LABS: Hematocrit 28.4 % (37.5-50.1)
[2019-11-07 19:33] LABS: Hemoglobin 9.1 g/dL (12.9-16.9)
[2019-11-08] MEDS: Ipratropium 1 PUFF INHALER IH SCH ×7 (03:40→23:45)
[2019-11-08 04:13] LABS: BUN/Creatinine Ratio 28 (6-26); Blood Urea Nitrogen 37 mg/dL (8-23); Calcium 8.8 mg/dL (8.6-10.3); Carbon Dioxide 30 mEq/L (23-29); Chloride 101 mEq/L (98-107); Glucose 94 mg/dL (70-105); Osmolality,Calculated 294 (280-300); Potassium 4.1 mEq/L (3.5-5.1); Sodium 138 mEq/L (136-145); eGFR For African Americans > 60 (> 60); eGFR For Non-African Americans 53 (> 60)
[2019-11-08 04:27] LABS: Basophils # 0.1 K/mcL (0.0-0.2); Basophils % 0.4 %; Eosinophils # 0.2 K/mcL (0.0-0.6); Eosinophils % 1.2 %; Hematocrit 27.8 % (37.5-50.1); Hemoglobin 9.1 g/dL (12.9-16.9); Immature Granulocytes % 3.9 % (0-4); Lymphocytes # 2.5 K/mcL (0.6-4.6); Lymphocytes % 16.7 %; Mean Corpuscular HGB Conc 32.7 g/dL (31.6-35.5); Mean Corpuscular Hemoglobin 31.7 pg (28.0-33.3); Mean Corpuscular Volume 96.9 fL (83.0-100.0); Mean Platelet Volume 9.5 fL (9.4-12.4); Monocytes # 1.3 K/mcL (0.0-1.3); Monocytes % 8.8 %; Neutrophils # 10.1 K/mcL (1.6-8.9); Nucleated Red Blood Cells 0.1 /100 WBC (0); Platelet Count 407 K/mcL (140-400); Red Blood Count 2.87 M/mcL (4.19-5.50); Red Cell Distribution Width 17.4 % (11.5-14.5); White Blood Count 14.7 K/mcL (4.3-11.1)
[2019-11-08] MEDS: Budesonide/Formoterol 160/4.5 1 PUFF INH IH SCH ×2 (07:20→19:54)
[2019-11-08] MEDS: Metoprolol XL (24 HR) Succ 50 MG TAB.ER.24H PO SCH (07:57)
[2019-11-08] MEDS: Lisinopril-HCTZ 20-12.5mg TABLET PO SCH (07:57)
[2019-11-08] MEDS: Multivit/Ca/Min/Fe/FA 1 TAB TABLET PO SCH (07:57)
[2019-11-08] MEDS: Aspirin Enteric Coated 81 MG Tablet PO SCH (07:57)
[2019-11-08] MEDS: Chlorhexidine Rinse 15 ML MOUTHWASH MM SCH (07:57)
[2019-11-08] MEDS: *HR* Amiodarone 200 MG TABLET PO SCH (07:57)
[2019-11-08] MEDS: Thiamine (B-1) 100 MG TABLET PO SCH (07:57)
[2019-11-08] MEDS: Sennosides/Docusate Sodium TABLET PO SCH ×2 (07:57→19:28)
[2019-11-08] MEDS: Folic Acid 1 MG TABLET PO SCH (07:57)
[2019-11-08] MEDS: *HR* OxyCODONE/APAP 5/325 TABLET PO PRN (16:04)
[2019-11-09] MEDS: Ipratropium 1 PUFF INHALER IH SCH ×5 (04:12→20:01)
[2019-11-09] MEDS: *HR* OxyCODONE/APAP 5/325 TABLET PO PRN ×2 (06:10→19:55)
[2019-11-09 06:48] LABS: Basophils # 0.1 K/mcL (0.0-0.2); Basophils % 0.4 %; Eosinophils # 0.2 K/mcL (0.0-0.6); Eosinophils % 0.9 %; Hematocrit 30.2 % (37.5-50.1); Hemoglobin 9.6 g/dL (12.9-16.9); Immature Granulocytes % 1.9 % (0-4); Lymphocytes % 12.7 %; Mean Corpuscular HGB Conc 31.8 g/dL (31.6-35.5); Mean Corpuscular Hemoglobin 30.8 pg (28.0-33.3); Mean Corpuscular Volume 96.8 fL (83.0-100.0); Mean Platelet Volume 9.4 fL (9.4-12.4); Monocytes # 1.4 K/mcL (0.0-1.3); Monocytes % 8.6 %; Neutrophils # 12.1 K/mcL (1.6-8.9); Platelet Count 432 K/mcL (140-400); Red Blood Count 3.12 M/mcL (4.19-5.50); Red Cell Distribution Width 17.2 % (11.5-14.5); Segmented Neutrophils % 75.5 %; White Blood Count 16.1 K/mcL (4.3-11.1)
[2019-11-09 07:12] LABS: BUN/Creatinine Ratio 28 (6-26); Blood Urea Nitrogen 31 mg/dL (8-23); Carbon Dioxide 28 mEq/L (23-29); Chloride 99 mEq/L (98-107); Glucose 91 mg/dL (70-105); Osmolality,Calculated 288 (280-300); Potassium 4.3 mEq/L (3.5-5.1); Sodium 136 mEq/L (136-145); eGFR For African Americans > 60 (> 60); eGFR For Non-African Americans > 60 (> 60)
[2019-11-09] MEDS ORDERED: Furosemide 40 MG/4 ML VIAL IVP ONE (07:17)
[2019-11-09] MEDS: Budesonide/Formoterol 160/4.5 1 PUFF INH IH SCH ×2 (07:47→20:02)
[2019-11-09] MEDS: Sennosides/Docusate Sodium TABLET PO SCH ×2 (08:20→19:55)
[2019-11-09] MEDS: Aspirin Enteric Coated 81 MG Tablet PO SCH (08:20)
[2019-11-09] MEDS: Metoprolol XL (24 HR) Succ 50 MG TAB.ER.24H PO SCH (08:20)
[2019-11-09] MEDS: Lisinopril-HCTZ 20-12.5mg TABLET PO SCH (08:20)
[2019-11-09] MEDS: *HR* Amiodarone 200 MG TABLET PO SCH (08:20)
[2019-11-10] MEDS: Ipratropium 1 PUFF INHALER IH SCH ×4 (00:22→11:01)
[2019-11-10 05:25] LABS: Hematocrit 31.1 % (37.5-50.1); Hemoglobin 9.6 g/dL (12.9-16.9)
[2019-11-10 05:44] LABS: BUN/Creatinine Ratio 30 (6-26); Blood Urea Nitrogen 35 mg/dL (8-23); Calcium 9.3 mg/dL (8.6-10.3); Carbon Dioxide 25 mEq/L (23-29); Chloride 101 mEq/L (98-107); Glucose 83 mg/dL (70-105); Osmolality,Calculated 287 (280-300); Potassium 4.2 mEq/L (3.5-5.1); Sodium 135 mEq/L (136-145); eGFR For African Americans > 60 (> 60); eGFR For Non-African Americans > 60 (> 60)
[2019-11-10] MEDS: Budesonide/Formoterol 160/4.5 1 PUFF INH IH SCH (07:31)
[2019-11-10 07:41] VITALS: BP 162/66
[2019-11-10] MEDS: Metoprolol XL (24 HR) Succ 50 MG TAB.ER.24H PO SCH (08:25)
[2019-11-10] MEDS: *HR* OxyCODONE/APAP 5/325 TABLET PO PRN (08:26)
[2019-11-10] MEDS: Sennosides/Docusate Sodium TABLET PO SCH (08:27)
[2019-11-10] MEDS: Lisinopril-HCTZ 20-12.5mg TABLET PO SCH (08:28)
[2019-11-10] MEDS: Aspirin Enteric Coated 81 MG Tablet PO SCH (08:28)
[2019-11-10] MEDS: *HR* Amiodarone 200 MG TABLET PO SCH (08:31)
== END 2019-11-10 13:12 | disposition home or self-care (01) | DRG 233 ==
LOC: EMEROOARM 23:49 → CDU 23:49 → ICNU 10-27 17:09 → SUATTDRO 10-28 10:11 → ICNU 10-29 09:47 → 2NNU 10-31 15:04
PROVIDERS: ADMIT Family Medicine; ATTEND Internal Medicine

== ENCOUNTER 2020-01-04 06:28 | Inpatient (IN) ==
[2020-01-04] MEDS ORDERED: methylPREDNISolone 125 MG/2 ML VIAL IVP ONE (06:36)
[2020-01-04] MEDS ORDERED: 0.9 % Sodium Chloride 1,000 ML IVC ONE (06:36)
[2020-01-04] MEDS ORDERED: 0.9 % Sodium Chloride 500 ML IV ONE (06:43)
[2020-01-04] MEDS ORDERED: Aspirin 81 MG TAB.CHEW ONE (06:59)
[2020-01-04] MEDS ORDERED: 0.9 % Sodium Chloride 500 ML ONE (07:00)
[2020-01-04 07:24] LABS: Basophils % 0.3 %; Eosinophils # 0.4 K/mcL (0.0-0.6); Eosinophils % 3.1 %; Hemoglobin 13.6 g/dL (12.9-16.9); Immature Granulocytes % 0.9 % (0-4); Lymphocytes # 2.2 K/mcL (0.6-4.6); Mean Corpuscular HGB Conc 30.2 g/dL (31.6-35.5); Mean Corpuscular Hemoglobin 29.6 pg (28.0-33.3); Mean Platelet Volume 9.9 fL (9.4-12.4); Monocytes # 0.9 K/mcL (0.0-1.3); Monocytes % 7.8 %; Neutrophils # 7.9 K/mcL (1.6-8.9); Platelet Count 306 K/mcL (140-400); Prothrombin Time 11.7 Seconds (9.4-12.1); Red Blood Count 4.59 M/mcL (4.19-5.50); Red Cell Distribution Width 16.4 % (11.5-14.5); Segmented Neutrophils % 68.9 %; White Blood Count 11.4 K/mcL (4.3-11.1)
[2020-01-04 07:24] LABS: VBG HCO3 30 mEq/L (21-27); VBG PCO2 55 mmHg (41-51); VBG PH 7.35 pH Units (7.32-7.42); VBG PO2 69 mmHg (25-50)
[2020-01-04 07:26] LABS: Activated Partial Thrombo Time 35.5 Seconds (26.0-36.0)
[2020-01-04 07:31] LABS: Albumin 4.5 g/dL (3.5-5.7); Albumin/Globulin Ratio 1.2 (1.1-2.2); Bilirubin,Direct 0.1 mg/dL (0.0-0.2); Bilirubin,Indirect 0.3 mg/dL (0.0-1.0); Bilirubin,Total 0.4 mg/dL (0.3-1.0); Globulin 3.7 g/dL (2.4-3.5); Total Protein 8.2 g/dL (6.4-8.9)
[2020-01-04 07:33] LABS: BUN/Creatinine Ratio 19 (6-26); Blood Urea Nitrogen 19 mg/dL (8-23); Calcium 9.8 mg/dL (8.6-10.3); Carbon Dioxide 29 mEq/L (23-29); Chloride 101 mEq/L (98-107); Glucose 127 mg/dL (70-105); Osmolality,Calculated 294 (280-300); Potassium 3.7 mEq/L (3.5-5.1); Sodium 140 mEq/L (136-145); eGFR For African Americans > 60 (> 60); eGFR For Non-African Americans > 60 (> 60)
[2020-01-04 07:34] LABS: Troponin I < 0.03 ng/mL (< 0.04)
[2020-01-04] MEDS ORDERED: Isovue-370 500 ML BOTTLE IVP ONE (07:35)
[2020-01-04] MEDS ORDERED: Aspirin 81 MG TAB.CHEW PO SCH (09:00)
[2020-01-04] MEDS ORDERED: Furosemide Oral Soln 40 MG/4 ML UDC PO SCH (09:00)
[2020-01-04] MEDS ORDERED: Azithromycin 500 MG in 0.9 % Sodium Chloride 250 ML IVPB ONE (09:35)
[2020-01-04] MEDS ORDERED: cefTRIAXone 1,000 MG in 0.9 % Sodium Chloride Mini Bag 100 ML IVPB ONE (09:36)
[2020-01-04] MEDS ORDERED: Naloxone 0.4 MG/ML INJ IVP PRN (10:16)
[2020-01-04] MEDS ORDERED: Ondansetron 4 MG/2 ML VIAL IVP PRN (10:16)
[2020-01-04] MEDS ORDERED: Ipratropium/Albuterol Neb 3 ML IH PRN (10:19)
[2020-01-04] MEDS: Doxycycline 100 MG in 0.9 % Sodium Chloride Mini Bag 100 ML IVPB SCH ×2 (12:35→22:00)
[2020-01-04] MEDS: atenoloL 50 MG TABLET PO SCH ×2 (12:42→21:58)
[2020-01-04] MEDS: Aspirin Enteric Coated 81 MG Tablet PO SCH (12:42)
[2020-01-04] MEDS: amLODIPine 5 MG TABLET PO SCH (12:42)
[2020-01-04] MEDS: lisinopriL 20 MG TABLET PO SCH (12:42)
[2020-01-04 14:25] LABS: Adenovirus Not Detected (Not Detect); Coronavirus 229E Not Detected (Not Detect); Coronavirus HKU1 Not Detected (Not Detect); Coronavirus NL63 DETECTED (Not Detect); Coronavirus OC43 Not Detected (Not Detect); Human Metapneumovirus Not Detected (Not Detect); Human Rhinovirus/Enterovirus Not Detected (Not Detect); Influenza A Subtype 2009 H1 Not Detected (Not Detect); Influenza B Not Detected (Not Detect); Parainfluenza Virus 1 Not Detected (Not Detect); Parainfluenza Virus 2 Not Detected (Not Detect); Parainfluenza Virus 3 Not Detected (Not Detect); Parainfluenza Virus 4 Not Detected (Not Detect); Respiratory Syncytial Virus Not Detected (Not Detect)
[2020-01-04 14:26] LABS: Bordetella Pertussis Not Detected (Not Detect); Chlamydophila pneumoniae Not Detected (Not Detect); Mycoplasma pneumoniae Not Detected (Not Detect)
[2020-01-04] MEDS: Ipratropium/Albuterol Neb 3 ML IH SCH ×2 (16:14→21:13)
[2020-01-04] MEDS: *HR* Heparin 5,000 UNIT/ML VIAL SQ SCH (17:50)
[2020-01-05 01:38] LABS: Basophils % 0.1 %; Hematocrit 39.1 % (37.5-50.1); Immature Granulocytes % 0.9 % (0-4); Lymphocytes # 1.5 K/mcL (0.6-4.6); Lymphocytes % 10.4 %; Mean Corpuscular HGB Conc 30.2 g/dL (31.6-35.5); Mean Corpuscular Hemoglobin 29.4 pg (28.0-33.3); Mean Corpuscular Volume 97.3 fL (83.0-100.0); Mean Platelet Volume 10.2 fL (9.4-12.4); Monocytes % 6.9 %; Platelet Count 321 K/mcL (140-400); Red Blood Count 4.02 M/mcL (4.19-5.50); Red Cell Distribution Width 16.2 % (11.5-14.5); Segmented Neutrophils % 81.7 %; White Blood Count 14.7 K/mcL (4.3-11.1)
[2020-01-05 01:39] LABS: Hemoglobin 11.8 g/dL (12.9-16.9)
[2020-01-05 01:56] LABS: BUN/Creatinine Ratio 25 (6-26); Blood Urea Nitrogen 30 mg/dL (8-23); Calcium 9.4 mg/dL (8.6-10.3); Carbon Dioxide 28 mEq/L (23-29); Chloride 102 mEq/L (98-107); Glucose 132 mg/dL (70-105); Magnesium 1.9 mg/dL (1.6-2.6); Osmolality,Calculated 296 (280-300); Potassium 3.8 mEq/L (3.5-5.1); Sodium 139 mEq/L (136-145); eGFR For African Americans > 60 (> 60); eGFR For Non-African Americans 59 (> 60)
[2020-01-05] MEDS: Ipratropium/Albuterol Neb 3 ML IH SCH ×4 (03:24→22:23)
[2020-01-05] MEDS: *HR* Heparin 5,000 UNIT/ML VIAL SQ SCH ×2 (05:33→18:06)
[2020-01-05] MEDS ORDERED: Perflutren Lipid Microsphere 1.3 ML in 0.9 % Sodium Chloride 8.7 ML IVP ONE (07:10)
[2020-01-05] MEDS ORDERED: MethylPREDNISolone 40 MG/ML VIAL IVP SCH (09:00)
[2020-01-05] MEDS ORDERED: Furosemide 20 MG/2 ML VIAL IVP SCH (09:00)
[2020-01-05] MEDS: cefTRIAXone 2,000 MG in Water for inj. (sterile) 20 ML IVP SCH (09:36)
[2020-01-05] MEDS: atenoloL 50 MG TABLET PO SCH ×2 (09:37→20:21)
[2020-01-05] MEDS: amLODIPine 5 MG TABLET PO SCH (09:37)
[2020-01-05] MEDS: allopurinoL 100 MG TABLET PO SCH (09:37)
[2020-01-05] MEDS: lisinopriL 20 MG TABLET PO SCH (09:37)
[2020-01-05] MEDS: Aspirin Enteric Coated 81 MG Tablet PO SCH (09:37)
[2020-01-05] MEDS: Doxycycline 100 MG in 0.9 % Sodium Chloride Mini Bag 100 ML IVPB SCH ×2 (11:55→23:07)
[2020-01-05] MEDS: MethylPREDNISolone 40 MG/ML VIAL IVP SCH (20:21)
[2020-01-05] MEDS: Furosemide 20 MG/2 ML VIAL IVP SCH (20:21)
[2020-01-06 02:08] LABS: Basophils % 0.2 %; Lymphocytes # 1.6 K/mcL (0.6-4.6); Lymphocytes % 8.9 %; Mean Corpuscular Hemoglobin 29.2 pg (28.0-33.3); Mean Corpuscular Volume 97.3 fL (83.0-100.0); Mean Platelet Volume 10.1 fL (9.4-12.4); Monocytes # 0.9 K/mcL (0.0-1.3); Monocytes % 4.8 %; Platelet Count 337 K/mcL (140-400); Red Blood Count 4.11 M/mcL (4.19-5.50); Red Cell Distribution Width 15.9 % (11.5-14.5); Segmented Neutrophils % 85.1 %; White Blood Count 17.6 K/mcL (4.3-11.1)
[2020-01-06 02:26] LABS: BUN/Creatinine Ratio 33 (6-26); Blood Urea Nitrogen 33 mg/dL (8-23); Calcium 9.4 mg/dL (8.6-10.3); Carbon Dioxide 27 mEq/L (23-29); Chloride 101 mEq/L (98-107); Glucose 141 mg/dL (70-105); Magnesium 1.8 mg/dL (1.6-2.6); Osmolality,Calculated 294 (280-300); Phosphorous 3.6 mg/dL (2.7-4.5); Sodium 137 mEq/L (136-145); eGFR For African Americans > 60 (> 60); eGFR For Non-African Americans > 60 (> 60)
[2020-01-06] MEDS: Ipratropium/Albuterol Neb 3 ML IH SCH ×2 (03:14→10:43)
[2020-01-06] MEDS: *HR* Heparin 5,000 UNIT/ML VIAL SQ SCH ×2 (05:35→10:18)
[2020-01-06 07:42] VITALS: BP 146/73
[2020-01-06] MEDS: cefTRIAXone 2,000 MG in Water for inj. (sterile) 20 ML IVP SCH (08:41)
[2020-01-06] MEDS: Aspirin Enteric Coated 81 MG Tablet PO SCH (08:42)
[2020-01-06] MEDS: atenoloL 50 MG TABLET PO SCH (08:42)
[2020-01-06] MEDS: allopurinoL 100 MG TABLET PO SCH (08:42)
[2020-01-06] MEDS: amLODIPine 5 MG TABLET PO SCH (08:42)
[2020-01-06] MEDS: MethylPREDNISolone 40 MG/ML VIAL IVP SCH (08:42)
[2020-01-06] MEDS: lisinopriL 20 MG TABLET PO SCH (08:42)
[2020-01-06] MEDS: Furosemide 20 MG/2 ML VIAL IVP SCH (08:42)
[2020-01-06] MEDS: Doxycycline 100 MG in 0.9 % Sodium Chloride Mini Bag 100 ML IVPB SCH (10:18)
== END 2020-01-06 11:00 | disposition home or self-care (01) | DRG 291 ==
LOC: EMEROOARM 06:28 → 2ANU 06:28 → SUATTDRO 10:16 → 2ANU 10:55
PROVIDERS: ADMIT Internal Medicine; ATTEND Internal Medicine